=== PATIENT | male | born 1980 | race Caucasian/White ===

== ENCOUNTER 2020-08-23 09:32 | Emergency (ER) | payer MEDICAID ==
[~2020-08-23] VITALS: Ht 180 cm; Wt 82.0 kg
[~2020-08-23 09:32] MED LIST: HYDROXYPAM; LITH300T15 PO; OLAN5TAB67 PO
[2020-08-23 09:35] VITALS: BP 118/83
--- NOTE | 2020-08-23 09:59 | ED Lower Extremity ---
General Chief Complaint: Lower Extremity Stated Complaint: L KNEE PAIN Nursing Triage Note: PT AMB TO FT1 PT CO OF L KNEE PAIN, STARTED YESTERDAY AFTER TWISTING KNEE Nursing Sepsis Screen: No Definite Risk Source: patient, family Exam Limitations: no limitations History of Present Illness Date Seen by Provider: Aug 23, 2020 Time Seen by Provider: 09:45 Initial Comments Patient is a 40-year-old male who presents to the emergency department complaining of left knee pain. Patient had spontaneous onset of left knee pain last evening. He states that he thinks he might have twisted his knee at some point and going about his daily activities yesterday. Patient states that the knee swelled last night. He states that he applied ice and heat and elevated it with no relief of symptoms. He did not take any ibuprofen or Tylenol. Patient denies any foot or ankle pain. He states he has a little bit of left hip pain secondary to limping on the left leg. He denies any recent illnesses such as fevers chills cough or congestion. No Covid complaints. All other review of systems reviewed and negative except as stated above. Onset: yesterday Severity: severe (Patient rates pain at "a 9-/2") Pain/Injury Location: left knee Method of Injury: unknown Allergies and Home Medications Allergies Coded Allergies: No Known Drug Allergies (Unverified , 10/16/12) Home Medications No Active Prescriptions or Reported Meds Patient Home Medication List Home Medication List Reviewed: Yes Review of Systems Constitutional: see HPI EENTM: no symptoms reported Respiratory: no symptoms reported Cardiovascular: no symptoms reported Genitourinary: no symptoms reported Musculoskeletal: joint pain (Left knee), joint swelling (Left knee) All Other Systems Reviewed Negative Unless Noted: Yes Past Pipyxhm-Irbvup-Cispcz Hx Patient Social History Alcohol Use: Occasionally Uses Smoking Status: Current Everyday Smoker Type Used: Cigarettes Recent Infectious Disease Expo: No Recent Hopitalizations: No Seasonal Allergies Seasonal Allergies: Yes Past Medical History Surgeries: Yes (FX JAW) Respiratory: No Cardiac: No Neurological: No Gastrointestinal: No Musculoskeletal: No Endocrine: No Cancer: No Psychosocial: No Family Medical History No Pertinent Family Hx Physical Exam Vital Signs Vital Signs - First Documented 08/23/20 09:35 Temp 35.8 Pulse 90 Resp 20 B/P (MAP) 118/83 (95) Pulse Ox 97 Capillary Refill : Less Than 3 Seconds Height, Weight, BMI Height: 5'10" Weight: 160lbs. oz. [id number]; 25.00 BMI Method:Stated General Appearance: WD/WN, no apparent distress HEENT: PERRL/EOMI Cardiovascular: regular rate, rhythm Respiratory: no respiratory distress, no accessory muscle use Hips: bilateral hip non-tender, bilateral hip normal inspection, bilateral hip normal range of motion, bilateral hip no evidence of injury Legs: bilateral leg non-tender, bilateral leg normal inspection, bilateral leg normal range of motion, bilateral leg no evidence of injury Knees: right knee non-tender, right knee normal inspection, right knee normal range of motion, right knee no evidence of injury; left knee bone tenderness (Medial joint line tenderness), left knee pain (Patient has medial joint line tenderness and pain with valgus stress on the knee in the medial aspect. No crepitance no significant effusion; the knee joint is stable with a negative anterior and posterior drawer. Marilee's test for both medial and lateral pain seems to be positive, the patient is very apprehensive with this test), left knee swelling (Minimal) Ankles: bilateral ankle non-tender, bilateral ankle normal inspection, bilateral ankle normal range of motion, bilateral ankle no evidence of injury Feet: bilateral foot non-tender, bilateral foot normal inspection, bilateral foot normal range of motion, bilateral foot no evidence of injury Neurologic/Tendon: normal sensation, normal motor functions, normal tendon functions Neurologic/Psychiatric: alert, normal mood/affect, oriented x 3 Progress/Results/Core Measures Results/Orders Vital Signs/I&O 08/23/20 09:35 Temp 35.8 Pulse 90 Resp 20 B/P (MAP) 118/83 (95) Pulse Ox 97 Blood Pressure Mean: 95 Departure Impression Primary Impression: Internal derangement of left knee Disposition: 01 HOME, SELF-CARE Condition: Stable Departure-Patient Inst. Decision time for Depature: 10:00 Referrals: VICENTE RUSSO MD (PCP/Family) Primary Care Physician Patient Instructions: Ligament Injuries in the Knee (DC) Add. Discharge Instructions: wear the knee brace as needed for comfort. Please call and follow up with Orthopedics - I have given you contact info for Dr El. Take the pain medication I have prescribed twice daily with food. I have given you a dose here in the emergency department. Return to the Emergency Department for any worsening pain, swelling, weakness or other emergent concerns. All discharge instructions reviewed with patient and/or family. Voiced understanding. Scripts Naproxen (Naprosyn) 500 Mg Tablet 500 MG PO BID, #30 TAB 0 Refills Prov: AYESHA BARILLAS MD 08/23/20 Work/School Note: Work Release Form Date Seen in the Emergency Department: Aug 23, 2020 Return to Work: Aug 24, 2020 AYESHA BARILLAS MD Aug 23, 2020 09:59
[2020-08-23] MEDS ORDERED: NAPR-1071 PO (10:05)
[2020-08-23] MEDS ORDERED: NAPROXEN 250 MG (NAPROSYN) TABLET PO ONE (10:15)
== END 2020-08-23 10:18 | disposition home or self-care (01) ==
LOC: EDUNIT# 09:32 → ER 09:34
DX: M23.92 Unspecified internal derangement of left knee (principal); F17.210 Nicotine dependence, cigarettes, uncomplicated; X50.0XXA Overexertion from strenuous movement or load, initial encounter
CPT/HCPCS: 99283; L1830

== ENCOUNTER 2022-02-18 08:23 | Emergency (ER) | payer MEDICAID ==
[~2022-02-18] VITALS: Ht 175.2 cm; Wt 77.1 kg
[~2022-02-18 08:23] MED LIST changes: +NAPR-1071 PO
[2022-02-18] MEDS ORDERED: morphine INJ 10 MG/ML 1ML (SYR OR VIAL) IVP STA (08:59)
[2022-02-18] MEDS ORDERED: ONDANSETRON 4 MG/2 ML (SDV) Z0FRAN IVP ONE (09:00)
[2022-02-18] MEDS ORDERED: PANTOPRAZOLE 40 MG (PROTONIX) VIAL IV ONE (09:00)
[2022-02-18] MEDS ORDERED: LACTATED RINGERS 1,000 ML IV ONE (09:00)
[2022-02-18 09:06] LABS: BASOPHILS % (AUTO) 0 % (0-10); EOSINOPHILS # (AUTO) 0.1 10^3/uL (0.0-0.3); EOSINOPHILS % (AUTO) 1 % (0-10); HEMATOCRIT 47 % (40-54); HEMOGLOBIN 15.8 g/dL (13.3-17.7); LYMPHOCYTES # (AUTO) 1.3 10^3/uL (1.0-4.0); LYMPHOCYTES % (AUTO) 16 % (12-44); MEAN CORPUSCULAR HEMOGLOBIN 30 pg (25-34); MEAN CORPUSCULAR HGB CONC 34 g/dL (32-36); MEAN CORPUSCULAR VOLUME 89 fL (80-99); MEAN PLATELET VOLUME 9.8 fL (9.0-12.2); MONOCYTES # (AUTO) 0.5 10^3/uL (0.0-1.0); MONOCYTES % (AUTO) 6 % (0-12); NEUTROPHILS # (AUTO) 6.7 10^3/uL (1.8-7.8); NEUTROPHILS % (AUTO) 78 % (42-75); PLATELET COUNT 232 10^3/uL (130-400); WHITE BLOOD COUNT 8.6 10^3/uL (4.3-11.0)
[2022-02-18 09:12] LABS: ALBUMIN 4.3 GM/DL (3.2-4.5); POTASSIUM 4.6 MMOL/L (3.6-5.0)
[2022-02-18 09:13] LABS: CALCIUM 9.1 MG/DL (8.5-10.1)
--- NOTE | 2022-02-18 09:14 | ED Abdominal Pain ---
General Chief Complaint: Abdominal/GI Problems Stated Complaint: STOMACH PAIN ON LEFT SIDE Nursing Triage Note: PT TO RM 3 WITH CC OF L SIDE ABD PAIN, NAUSEA AND VOMITING SINCE . PT DENIES FEVER, COUGH. PT STATES ABD PAIN "COMES AND GOES. RHONDA BEEN DEALING WITH THIS FOR 5 YEARS NOW." PT REPORTS LACK OF APPITIATE. PT HX OF GERD, IBSD, UC, AND DIVERTICULITIS. Source of Information: Patient Exam Limitations: No Limitations History of Present Illness Date Seen by Provider: Feb 18, 2022 Time Seen by Provider: 08:44 Initial Comments Patient with a four 5-day flare of ulcerative colitis, left-sided abdominal pain, loose stools that are slowing down, nonbloody diarrhea. He had a normal f ormed bowel movement this morning. He has not been using anything for the pain. He has been using ondansetron for the nausea with good control but he is almost out of medication. He still having some vomiting. He is not having fevers or chills. No history of abdominal surgeries. Has had multiple scopes and a history of GERD. He smokes, drinks a sixpack of beer a week and denies a history of pancreatitis. Rates his pain as a 9 out of 10. He has a history of diverticulosis with bouts of diverticulitis. He is not on mesalamine/Pentasa. Allergies and Home Medications Allergies Coded Allergies: No Known Drug Allergies (Unverified , 10/16/12) Patient Home Medication List Home Medication List Reviewed: Yes Mesalamine (Mesalamine) 1,000 Mg Supp.rect, 1,000 MG RC DAILY Prescribed by: PHOEBE LIGHT on 02/18/22 1101 Naproxen (Naprosyn) 500 Mg Tablet, 500 MG PO BID Prescribed by: AYESHA BARILLAS on 08/23/20 1005 Ondansetron (Ondansetron Odt) 4 Mg Tab.rapdis, 4-8 MG PO Q6H PRN for NAUSEA/VOMITING Prescribed by: PHOEBE LIGHT on 02/18/22 1101 Review of Systems Review of Systems Constitutional: No chills, No fever, No malaise EENTM: No Blurred Vision, No Double Vision Respiratory: Denies Cough, Denies Shortness of Air Cardiovascular: Denies Chest Pain, Denies Edema, Denies Irregular Heart Rate Gastrointestinal: See HPI; Denies Abdomen Distended; Abdominal Pain; Denies Constipated; Diarrhea, Nausea Genitourinary: Denies Burning, Denies Discharge Musculoskeletal: No back pain, No joint pain Skin: No pruritus, No rash Psychiatric/Neurological: Denies Headache, Denies Numbness All Other Systems Reviewed Negative Unless Noted: Yes Past Ffdpcbg-Zajest-Pwvejj Hx Patient Social History Tobacco Use?: Yes Tobacco type used: Cigarettes Smoking Status: Current Everyday Smoker Substance use?: Yes Substance type: Marijuana Alcohol Use?: Yes Alcohol Frequency: Several times a month Pt feels they are or have been: No Seasonal Allergies Seasonal Allergies: Yes Past Medical History Surgery/Hospitalization HX: JAW SURGERY, GERD, IBS, UC, DIVERTICULITIS Surgeries: Yes (FX JAW) Respiratory: No Cardiac: No Neurological: No Gastrointestinal: No Musculoskeletal: No Endocrine: No Cancer: No Psychosocial: No Family Medical History No Pertinent Family Hx Physical Exam Vital Signs Vital Signs - First Documented 02/18/22 08:30 Temp 36.3 Pulse 69 Resp 20 B/P (MAP) 117/86 (96) Pulse Ox 97 O2 Delivery Room Air Capillary Refill : Less Than 3 Seconds Height/Weight/BMI Height: 5'10" Weight: 160lbs. oz. 72.329582yr; 25.00 BMI Method:Stated General Appearance: WD/WN, mild distress HEENT: PERRL/EOMI; No pharynx normal (Dry oral mucosa) Neck: full range of motion, normal inspection Respiratory: lungs clear, normal breath sounds, no respiratory distress, no accessory muscle use Cardiovascular: normal peripheral pulses, regular rate, rhythm Peripheral Pulses: 2+ Radial Pulses (R), 2+ Radial Pulses (L) Gastrointestinal: normal bowel sounds, soft, tenderness (Left upper and lower quadrant abdomen.) Extremities: normal capillary refill Neurologic/Psychiatric: alert, normal mood/affect, oriented x 3 Skin: normal color, warm/dry Progress/Results/Core Measures Results/Orders Lab Results Laboratory Tests Test 02/18/22 08:50 Range/Units White Blood Count 8.6 4.3-11.0 10^3/uL Red Blood Count 5.25 4.30-5.52 10^6/uL Hemoglobin 15.8 13.3-17.7 g/dL Hematocrit 47 40-54 % Mean Corpuscular Volume 89 80-99 fL Mean Corpuscular Hemoglobin 30 25-34 pg Mean Corpuscular Hemoglobin Concent 34 32-36 g/dL Red Cell Distribution Width 13.5 10.0-14.5 % Platelet Count 232 130-400 10^3/uL Mean Platelet Volume 9.8 9.0-12.2 fL Immature Granulocyte % (Auto) 0 % Neutrophils (%) (Auto) 78 H 42-75 % Lymphocytes (%) (Auto) 16 12-44 % Monocytes (%) (Auto) 6 0-12 % Eosinophils (%) (Auto) 1 0-10 % Basophils (%) (Auto) 0 0-10 % Neutrophils # (Auto) 6.7 1.8-7.8 10^3/uL Lymphocytes # (Auto) 1.3 1.0-4.0 10^3/uL Monocytes # (Auto) 0.5 0.0-1.0 10^3/uL Eosinophils # (Auto) 0.1 0.0-0.3 10^3/uL Basophils # (Auto) 0.0 0.0-0.1 10^3/uL Immature Granulocyte # (Auto) 0.0 0.0-0.1 10^3/uL Sodium Level 142 135-145 MMOL/L Potassium Level 4.6 3.6-5.0 MMOL/L Chloride Level 106 98-107 MMOL/L Carbon Dioxide Level 26 21-32 MMOL/L Anion Gap 10 5-14 MMOL/L Blood Urea Nitrogen 22 H 7-18 MG/DL Creatinine 1.14 0.60-1.30 MG/DL Estimat Glomerular Filtration Rate 82 BUN/Creatinine Ratio 19 Glucose Level 103 70-105 MG/DL Calcium Level 9.1 8.5-10.1 MG/DL Corrected Calcium 8.9 8.5-10.1 MG/DL Total Bilirubin 0.5 0.1-1.0 MG/DL Aspartate Amino Transf (AST/SGOT) 15 5-34 U/L Alanine Aminotransferase (ALT/SGPT) 20 0-55 U/L Alkaline Phosphatase 57 40-136 U/L C-Reactive Protein High Sensitivity 0.56 H 0.00-0.50 MG/DL Total Protein 7.0 6.4-8.2 GM/DL Albumin 4.3 3.2-4.5 GM/DL Lipase 19 8-78 U/L My Orders Orders - KULDEEP,PHOEBE J Ed Iv/Invasive Line Start (02/18/22 08:59) Lactated Ringers (Lr 1000 Ml Iv Solution (02/18/22 09:00) Cbc With Automated Diff (02/18/22 08:59) Comprehensive Metabolic Panel (02/18/22 08:59) Hs C Reactive Protein (02/18/22 08:59) Pantoprazole Injection (Protonix Injecti (02/18/22 09:00) Ondansetron Injection (Zofran Injectio (02/18/22 09:00) Morphine Injection (Morphine Injection (02/18/22 08:59) Lipase (02/18/22 08:59) Medications Given in ED Current Medications Medications Dose Ordered Sig/Nimo Route Start Time Stop Time Status Last Admin Dose Admin Lactated Ringer's 1,000 ml @ 0 mls/hr Q0M ONCE IV 02/18/22 09:00 02/18/22 09:02 DC 02/18/22 09:11 1,000 MLS/HR Ondansetron HCl 8 mg ONCE ONCE IVP 02/18/22 09:00 02/18/22 09:02 DC 02/18/22 09:09 8 MG Pantoprazole 40 mg ONCE ONCE IV 02/18/22 09:00 02/18/22 09:02 DC 02/18/22 09:09 40 MG Vital Signs/I&O 02/18/22 02/18/22 08:30 11:10 Temp 36.3 36.3 Pulse 69 52 Resp 20 20 B/P (MAP) 117/86 (96) 112/83 Pulse Ox 97 99 O2 Delivery Room Air Room Air Blood Pressure Mean: 96 Progress Progress Note #1: Time: 09:13 Progress Note We will start with 2 mg morphine, some fluids, ondansetron and check some labs including a lipase. We will also set him up with a refill for his ondansetron and discuss mesalamine suppositories. Progress Note #2: Time: 10:54 Progress Note The patient's pain is improving. He says he has a brother who had a intestinal cancer found near his biliary duct. We have encouraged him to continue doing screening scopes and recommend he talk to Dr. Russo for referral or he can follow- up with Dr. Novoa, general surgery for screening scopes. We will put him out with a prescription for mesalamine suppositories and ondansetron. Departure Impression Primary Impression: Ulcerative colitis, acute Qualified Codes: K51.90 - Ulcerative colitis, unspecified, without complications Disposition: 01 HOME, SELF-CARE Condition: Stable Departure-Patient Inst. Decision time for Depature: 10:56 Referrals: ARASH NOVOA JOHN M MD (PCP/Family) Primary Care Physician Patient Instructions: Ulcerative Colitis (DC), Diet for Ulcerative Colitis Add. Discharge Instructions: Mesalamine suppository once a day. Follow-up with your primary care doctor within the next 2 weeks to reevaluate symptom control. Ondansetron 1 tablet every 6 hours as needed for nausea or vomiting. If you are still having symptoms 30 to 60 minutes later then take a second tablet of ondansetron. Tylenol 1000 mg every 8 hours as needed for pain. Continue to take an acids as necessary. Do not take NSAIDs such as ibuprofen, Motrin, Aleve, naproxen etc. Return to the ER for severe, intractable symptoms especially accompanied with fever or other worrisome concerns. Call Dr. Novoa or a security alarm technician. Dr. Russo can help guide you. All discharge instructions reviewed with patient and/or family. Voiced understanding. Scripts Mesalamine (Mesalamine) 1,000 Mg Supp.rect 1000 MG RC DAILY, #30 SUPP.RECT 0 Refills Prov: PHOEBE LIGHT 02/18/22 Ondansetron (Ondansetron Odt) 4 Mg Tab.rapdis 4-8 MG PO Q6H PRN for NAUSEA/VOMITING, #20 TAB 0 Refills Prov: PHOEBE LIGHT 02/18/22 Work/School Note: Work Release Form Date Seen in the Emergency Department: Feb 18, 2022 Return to Work: Feb 21, 2022 Restrictions: No Restrictions Copy Copies To 1: ARASH NOVOA DO; VICENTE RUSSO MD, TITUS J Feb 18, 2022 09:14
[2022-02-18 09:17] LABS: BILIRUBIN,TOTAL 0.5 MG/DL (0.1-1.0)
[2022-02-18 09:19] LABS: CREATININE SERUM 1.14 MG/DL (0.60-1.30)
[2022-02-18] MEDS ORDERED: ONDA4TAB11 PO (11:01)
[2022-02-18] MEDS ORDERED: MESA10005 RC (11:01)
[2022-02-18 11:10] VITALS: BP 112/83
== END 2022-02-18 11:10 | disposition home or self-care (01) ==
LOC: EDUNIT# 08:23 → ER 08:26
DX: K51.90 Ulcerative colitis, unspecified, without complications (principal); F17.210 Nicotine dependence, cigarettes, uncomplicated; Z28.310 Unvaccinated for COVID-19
CPT/HCPCS: 36415; 80053; 83690; 85025; 86141; 96361; 96374; 96375

== ENCOUNTER 2022-02-21 07:57 | Emergency (ER) | payer MEDICAID ==
[~2022-02-21] VITALS: Ht 175.3 cm; Wt 77.1 kg
[~2022-02-21 07:57] MED LIST changes: +MESA10005 RC; +ONDA4TAB11 PO
[2022-02-21 08:35] LABS: BASOPHILS % (AUTO) 0 % (0-10); EOSINOPHILS # (AUTO) 0.1 10^3/uL (0.0-0.3); EOSINOPHILS % (AUTO) 1 % (0-10); HEMATOCRIT 50 % (40-54); HEMOGLOBIN 16.8 g/dL (13.3-17.7); LYMPHOCYTES # (AUTO) 1.5 10^3/uL (1.0-4.0); LYMPHOCYTES % (AUTO) 30 % (12-44); MEAN CORPUSCULAR HEMOGLOBIN 30 pg (25-34); MEAN CORPUSCULAR HGB CONC 34 g/dL (32-36); MEAN CORPUSCULAR VOLUME 89 fL (80-99); MEAN PLATELET VOLUME 9.5 fL (9.0-12.2); MONOCYTES # (AUTO) 0.4 10^3/uL (0.0-1.0); MONOCYTES % (AUTO) 8 % (0-12); NEUTROPHILS # (AUTO) 2.9 10^3/uL (1.8-7.8); NEUTROPHILS % (AUTO) 60 % (42-75); PLATELET COUNT 251 10^3/uL (130-400); WHITE BLOOD COUNT 4.9 10^3/uL (4.3-11.0)
[2022-02-21 08:48] LABS: ALBUMIN 4.4 GM/DL (3.2-4.5); POTASSIUM 4.4 MMOL/L (3.6-5.0)
[2022-02-21 08:49] LABS: CALCIUM 9.4 MG/DL (8.5-10.1)
[2022-02-21 08:51] LABS: TOTAL PROTEIN 7.3 GM/DL (6.4-8.2)
[2022-02-21 08:53] LABS: BILIRUBIN,TOTAL 0.4 MG/DL (0.1-1.0); ERYTHROCYTE SEDIMENTATION RATE 4 MM/HR (0-15)
[2022-02-21 08:54] LABS: CREATININE SERUM 0.87 MG/DL (0.60-1.30)
[2022-02-21] MEDS ORDERED: LACTATED RINGERS 1,000 ML IV ONE (10:15)
[2022-02-21] MEDS ORDERED: HOLD METFORMIN - RECEIVED CONTRAST 20 ML VIAL IV SCH (10:30)
[2022-02-21] MEDS ORDERED: NS 100 ML (IVPB) BAG IV ONE (10:30)
[2022-02-21] MEDS ORDERED: IOHEXOL 350 MG/ML 100 ML (OMNIPAQUE 350) VIAL IV ONE (10:30)
[2022-02-21] MEDS ORDERED: ONDANSETRON 4 MG/2 ML (SDV) Z0FRAN IVP ONE (10:30)
[2022-02-21] MEDS ORDERED: CATHETER FLUSH 10 ML SYR IV PRN (10:30)
--- NOTE | 2022-02-21 10:46 | Diagnostic Imaging Report ---
PROCEDURE: CT abdomen and pelvis with contrast. TECHNIQUE: Multiple contiguous axial images were obtained through the abdomen and pelvis after administration of intravenous contrast. Auto Exposure Controls were utilized during the CT exam to meet ALARA standards for radiation dose reduction. All CT scans use one or more of the following dose optimizing techniques: automated exposure control, MA and/or KvP adjustment based on patient size and exam type or iterative reconstruction. INDICATION: Intermittent abdominal pain. FINDINGS: The lung bases are clear. Good enhancement of the aorta and abdominal vessels and organs. Aorta appears normal. The liver appears normal. Gallbladder and bile duct are normal. Pancreas and spleen are normal. Adrenal glands are not enlarged. Kidneys show normal enhancement without obstruction, calculi or mass. No adenopathy is noted. The stomach and small bowel are not distended. Colon shows normal stool and gas pattern. The appendix is not dilated. No findings are seen to indicate diverticulitis or colitis. No free air or free fluid. Bladder is not distended. No bony abnormalities. IMPRESSION: Normal CT abdomen and pelvis. Dictated by: Dictated on workstation # [id number]
--- NOTE | 2022-02-21 11:25 | ED Abdominal Pain ---
General Chief Complaint: Abdominal/GI Problems Stated Complaint: ABD PAIN Nursing Triage Note: PT AMBULATE TO ROOM 08 WITHOUT DIFFICULTY WITH C/O LEFT LOWER ABD PAIN. PT REPORTS PAIN IS CHRONIC AND HAS BEEN HAPPENING FREQUENTLY "FOR YEARS". PT STATES THAT THE ABD PAIN RETURNED X1 WEEK AGO. PT REPORTS BEING SEEN IN THIS ED ON THURSDAY FOR SAME C/O. PT REPORTS HE HAS BEEN TAKING MEDS PRESCRIBED ON THURSDAY WITHOUT RELIEF. Source of Information: Patient Exam Limitations: No Limitations History of Present Illness Date Seen by Provider: Feb 21, 2022 Time Seen by Provider: 07:59 Initial Comments This 41-year-old gentleman presents to the emergency room with exacerbation of chronic left abdominal pain, nausea and vomiting. He reports history of extensive work-up in the past including upper endoscopy, colonoscopy, gall bladder ultrasound, hepatobiliary scan, and consultation with gastroenterology. He reports a diagnosis of ulcerative colitis and gastric ulcers. He has tried long-term PPI therapy in the past without improvement. He does admit to smoking marijuana daily and states a month of abstinence did not improve his symptoms. He also admits to drinking approximately a sixpack of beers per week. He is additionally a smoker. He has had intermittent episodes of these symptoms for at least 5 years. This morning he had exacerbation of pain and was vomiting. He was also seen 3 days ago in this ER and was started on mesalamine suppositories for treatment of ulcerative colitis, presuming that his present symptoms are related to ulcerative colitis. He also reports prior diagnosis of irritable bowel syndrome with diarrhea and diverticulitis. His primary care provider is Dr. Russo in [place], [place]. He has recently alternated between constipation and diarrhea. He feels dry as his urine has been dark recently. He reports his endoscopies were 3 years ago, hepatobiliary scan 5 years ago, and CT 5 years ago. Allergies and Home Medications Allergies Coded Allergies: No Known Drug Allergies (Unverified , 10/16/12) Patient Home Medication List Home Medication List Reviewed: Yes Mesalamine (Mesalamine) 1,000 Mg Supp.rect, 1,000 MG RC DAILY Prescribed by: PHOEBE LIGHT on 02/18/22 1101 Naproxen (Naprosyn) 500 Mg Tablet, 500 MG PO BID Prescribed by: AYESHA BARILLAS on 08/23/20 1005 Ondansetron (Ondansetron Odt) 4 Mg Tab.rapdis, 4-8 MG PO Q6H PRN for NAUSEA/VOMITING Prescribed by: PHOEBE LIGHT on 02/18/22 1101 Pantoprazole Sodium (Protonix) 40 Mg Tablet.dr, 40 MG PO DAILY Prescribed by: GENIA BAEZA on 02/21/22 1127 Tramadol HCl (Ultram) 50 Mg Tablet, 50 MG PO Q6H PRN for PAIN-BREAKTHROUGH Prescribed by: GENIA BAEZA on 02/21/22 1128 Review of Systems Review of Systems Constitutional: no symptoms reported EENTM: No Symptoms Reported Respiratory: No Symptoms Reported Cardiovascular: No Symptoms Reported Gastrointestinal: See HPI Genitourinary: See HPI Musculoskeletal: no symptoms reported Skin: no symptoms reported Psychiatric/Neurological: No Symptoms Reported Endocrine: No Symptoms Reported Hematologic/Lymphatic: No Symptoms Reported Past Xqqafzu-Uojner-Mkkzbb Hx Patient Social History Tobacco Use?: Yes Tobacco type used: Cigarettes Smoking Status: Heavy Tobacco Smoker Smokeless Tobacco Frequency: Never a User Use of E-Cig and/or Vaping dev: No Use of E-Cig and/or Vaping Julian: Never a User Substance use?: Yes Substance type: Marijuana Substance frequency: Daily Alcohol Use?: Yes Alcohol Frequency: Once in a while Pt feels they are or have been: No Seasonal Allergies Seasonal Allergies: Yes Past Medical History Surgery/Hospitalization HX: JAW SURGERY, GERD, IBS, UC, DIVERTICULITIS Surgeries: Yes (FX JAW) Abdominal (Upper and lower endoscopy) Respiratory: No Cardiac: No Neurological: No Gastrointestinal: Yes (Chronic abdominal pain) Colitis (Ulcerative colitis), Diverticulosis, Ulcer, Irritable Bowel Musculoskeletal: No Endocrine: No HEENT: No Cancer: No Psychosocial: Yes Bipolar Family Medical History No Pertinent Family Hx Physical Exam Vital Signs Vital Signs - First Documented 02/21/22 08:09 Temp 36.8 Pulse 70 Resp 15 B/P (MAP) 113/83 (93) O2 Delivery Room Air Capillary Refill : Less Than 3 Seconds Height/Weight/BMI Height: 5'10" Weight: 160lbs. oz. 72.555175nn; 25.00 BMI Method:Stated General Appearance: WD/WN, no apparent distress, thin HEENT: PERRL/EOMI, normal ENT inspection, other (Mucous membranes moist) Neck: normal inspection Respiratory: lungs clear, normal breath sounds, no respiratory distress Cardiovascular: regular rate, rhythm, no edema, no murmur Gastrointestinal: normal bowel sounds, soft; No distended; tenderness (Left abdomen) Extremities: non-tender, normal inspection, no pedal edema Neurologic/Psychiatric: portfolio mgr II-XII nml as tested, no motor/sensory deficits, alert, normal mood/affect, oriented x 3 Skin: normal color, warm/dry Progress/Results/Core Measures Results/Orders Lab Results Laboratory Tests Test 02/21/22 08:27 Range/Units White Blood Count 4.9 4.3-11.0 10^3/uL Red Blood Count 5.61 H 4.30-5.52 10^6/uL Hemoglobin 16.8 13.3-17.7 g/dL Hematocrit 50 40-54 % Mean Corpuscular Volume 89 80-99 fL Mean Corpuscular Hemoglobin 30 25-34 pg Mean Corpuscular Hemoglobin Concent 34 32-36 g/dL Red Cell Distribution Width 13.3 10.0-14.5 % Platelet Count 251 130-400 10^3/uL Mean Platelet Volume 9.5 9.0-12.2 fL Immature Granulocyte % (Auto) 0 % Neutrophils (%) (Auto) 60 42-75 % Lymphocytes (%) (Auto) 30 12-44 % Monocytes (%) (Auto) 8 0-12 % Eosinophils (%) (Auto) 1 0-10 % Basophils (%) (Auto) 0 0-10 % Neutrophils # (Auto) 2.9 1.8-7.8 10^3/uL Lymphocytes # (Auto) 1.5 1.0-4.0 10^3/uL Monocytes # (Auto) 0.4 0.0-1.0 10^3/uL Eosinophils # (Auto) 0.1 0.0-0.3 10^3/uL Basophils # (Auto) 0.0 0.0-0.1 10^3/uL Immature Granulocyte # (Auto) 0.0 0.0-0.1 10^3/uL Erythrocyte Sedimentation Rate 4 0-15 MM/HR Sodium Level 139 135-145 MMOL/L Potassium Level 4.4 3.6-5.0 MMOL/L Chloride Level 105 98-107 MMOL/L Carbon Dioxide Level 24 21-32 MMOL/L Anion Gap 10 5-14 MMOL/L Blood Urea Nitrogen 17 7-18 MG/DL Creatinine 0.87 0.60-1.30 MG/DL Estimat Glomerular Filtration Rate 110 BUN/Creatinine Ratio 20 Glucose Level 96 70-105 MG/DL Calcium Level 9.4 8.5-10.1 MG/DL Corrected Calcium 9.1 8.5-10.1 MG/DL Total Bilirubin 0.4 0.1-1.0 MG/DL Aspartate Amino Transf (AST/SGOT) 19 5-34 U/L Alanine Aminotransferase (ALT/SGPT) 21 0-55 U/L Alkaline Phosphatase 68 40-136 U/L C-Reactive Protein High Sensitivity 0.62 H 0.00-0.50 MG/DL Total Protein 7.3 6.4-8.2 GM/DL Albumin 4.4 3.2-4.5 GM/DL Lipase 21 8-78 U/L My Orders Orders - GENIA MANCIA MD Cbc With Automated Diff (02/21/22 08:30) Comprehensive Metabolic Panel (02/21/22 08:30) Hs C Reactive Protein (02/21/22 08:30) Lipase (02/21/22 08:30) Erythrocyte Sedimentation Rate (02/21/22 08:30) Ed Iv/Invasive Line Start (02/21/22 08:30) Lactated Ringers (Lr 1000 Ml Iv Solution (02/21/22 10:15) Ct Abdomen/Pelvis W (02/21/22 10:13) Iohexol Injection (Omnipaque 350 Mg/Ml 1 (02/21/22 10:30) Received Contrast (Hold Metformin- Contr (02/21/22 10:30) Sodium Chloride Flush (Catheter Flush Sy (02/21/22 10:30) Ns (Ivpb) (Sodium Chloride 0.9% Ivpb Bag (02/21/22 10:30) Ondansetron Injection (Zofran Injectio (02/21/22 10:30) Tramadol Tablet (Ultram Tablet) (02/21/22 11:30) Helicobacter Pylori Francy Igg (02/21/22 11:29) Medications Given in ED Vital Signs/I&O 02/21/22 08:09 Temp 36.8 Pulse 70 Resp 15 B/P (MAP) 113/83 (93) O2 Delivery Room Air Blood Pressure Mean: 93 Progress Progress Note : Progress Note Work-up was grossly unremarkable. He was treated with Zofran and IV fluids. A dose of tramadol was given before discharge as a trial for pain management. Previously he had been taking Tylenol only which was not very effective. I offered CT scan because he has not had one in the past 5 years and I do not have a CT scan on file in his medical record. Patient wished to proceed with CT scan. CT did not show any clear etiology for his pain or vomiting. We discussed the necessity to abstain from both alcohol and marijuana for several months to determine if these exposures are a contributing factor. I also encouraged him to continue daily PPI therapy and follow dietary recommendations. See discharge instructions for further discussion. Diagnostic Imaging Diagonstic Imaging: CT Plain Films/CT/US/NM/MRI: abdomen, pelvis Comments CT abdomen and pelvis viewed by me and report reviewed. See report below: NAME: ASHLEY MOTLEY [facility] REC#: [id number] PT STATUS: REG ER : 1980 PHYSICIAN: GENIA MANCIA MD ADMIT DATE: 02/21/22/ER Signed Date of Exam:02/21/22 CT ABDOMEN/PELVIS W PROCEDURE: CT abdomen and pelvis with contrast. TECHNIQUE: Multiple contiguous axial images were obtained through the abdomen and pelvis after administration of intravenous contrast. Auto Exposure Controls were utilized during the CT exam to meet ALARA standards for radiation dose reduction. All CT scans use one or more of the following dose optimizing techniques: automated exposure control, MA and/or KvP adjustment based on patient size and exam type or iterative reconstruction. INDICATION: Intermittent abdominal pain. FINDINGS: The lung bases are clear. Good enhancement of the aorta and abdominal vessels and organs. Aorta appears normal. The liver appears normal. Gallbladder and bile duct are normal. Pancreas and spleen are normal. Adrenal glands are not enlarged. Kidneys show normal enhancement without obstruction, calculi or mass. No adenopathy is noted. The stomach and small bowel are not distended. Colon shows normal stool and gas pattern. The appendix is not dilated. No findings are seen to indicate diverticulitis or colitis. No free air or free fluid. Bladder is not distended. No bony abnormalities. IMPRESSION: Normal CT abdomen and pelvis. Dictated by: Dictated on workstation # [id number] Dict: 02/21/22 1036 Trans: 02/21/22 1058 [facility] [id number] Interpreted by: ARASH ROJAS MD Electronically signed by: ARASH ROJAS MD 02/21/22 1058 Departure Impression Primary Impression: Left sided abdominal pain of unknown cause Additional Impression: Nausea and vomiting Qualified Codes: R11.2 - Nausea with vomiting, unspecified Disposition: 01 HOME, SELF-CARE Condition: Improved Departure-Patient Inst. Decision time for Depature: 11:20 Referrals: VICENTE RUSSO MD (PCP/Family) Primary Care Physician Patient Instructions: Abdominal Pain, Adult ED, Ulcerative Colitis in Adults Add. Discharge Instructions: You may continue taking Tylenol (acetaminophen) up to 1000 mg every 6 hours as needed for pain. Add Ultram (tramadol) as prescribed for pain not controlled by Tylenol. Continue with antiacid therapy daily such as Protonix or omeprazole until o therwise instructed by your doctor. Follow-up with your primary care provider soon as possible and seek referral back to a reconciling clerk. Avoid the following: Alcohol, tobacco, smoking including marijuana/THC products, eating large meals, eating close to bedtime, caffeine, carbonation, citrus fruits and juices, tomato products, mints, NSAID medications such as ibuprofen or naproxen, spicy foods, fatty/greasy foods, or anything else you know irritates your stomach. Continue with the mesalamine suppositories as previously prescribed. This is a maintenance medication for ulcerative colitis. If ulcerative colitis is the cause of your pain, this medication may help considerably over time. You may continue using Zofran as prescribed for nausea and vomiting. Drink plenty of noncarbonated clear liquids. An H. pylori test was ordered in the emergency room. You may follow-up on the results of this test with your primary care provider. Results usually take several days from the hospital lab. Return to the emergency room if you have worsening symptoms despite following these instructions. All discharge instructions reviewed with patient and/or family. Voiced understanding. Scripts Pantoprazole Sodium (Protonix) 40 Mg Tablet. 40 MG PO DAILY, #30 TAB Prov: GENIA MANCIA MD 02/21/22 Tramadol HCl (Ultram) 50 Mg Tablet 50 MG PO Q6H PRN for PAIN-BREAKTHROUGH, #10 TAB Prov: GENIA MANCIA MD 02/21/22 Copy Copies To 1: VICENTE RUSSO MD, JOSHUA T MD Feb 21, 2022 11:25
[2022-02-21] MEDS ORDERED: PANT40TA2 PO (11:27)
[2022-02-21] MEDS ORDERED: TRAM-42 PO (11:27)
[2022-02-21 11:37] VITALS: BP 137/86
== END 2022-02-21 11:37 | disposition home or self-care (01) ==
LOC: EDUNIT# 07:57 → ER 07:58
DX: R10.9 Unspecified abdominal pain (principal); R11.2 Nausea with vomiting, unspecified; F17.210 Nicotine dependence, cigarettes, uncomplicated; Z28.310 Unvaccinated for COVID-19
CPT/HCPCS: 36415; 74177; 80053; 83690; 85025; 85652; 86141; 86677

== ENCOUNTER → 2022-03-26 | Outpatient (CLI) | payer MEDICAID ==
[~2022-03-26] MED LIST changes: +PANT40TA2 PO; +TRAM-42 PO
--- NOTE | 2022-03-26 08:07 | Diagnostic Imaging Report ---
PROCEDURE: CT abdomen and pelvis without contrast. TECHNIQUE: Multiple contiguous axial images were obtained through the abdomen and pelvis without the use of intravenous contrast. Auto Exposure Controls were utilized during the CT exam to meet ALARA standards for radiation dose reduction. INDICATION: Left-sided abdominal pain COMPARISON: 02/21/2022 FINDINGS: The visualized lung bases are clear. The unenhanced liver and spleen are unremarkable. The adrenal glands are unremarkable. The pancreas is unremarkable. The gallbladder is unremarkable. The kidneys and bilateral ureters are unremarkable. No aneurysmal dilatation of the abdominal aorta. The appendix is unremarkable. Urinary bladder is predominantly decompressed but otherwise unremarkable. Tiny fat-containing right inguinal hernia. No bowel obstruction or pneumatosis. No significant adenopathy, free air, or free fluid within the abdomen or pelvis. No acute osseous abnormality. IMPRESSION: Stable examination without acute abnormality. Dictated by: Dictated on workstation # [id number]
== END ==
LOC: RAD 07:45
PROVIDERS: ATTEND Pediatrics
DX: R10.12 Left upper quadrant pain (principal)
CPT/HCPCS: 74176

== ENCOUNTER 2022-10-01 20:26 | Emergency (ER) | payer MEDICAID ==
[~2022-10-01] VITALS: Ht 175.3 cm; Wt 84.0 kg
[2022-10-01 20:35] VITALS: BP 116/96
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
[2022-10-01] MEDS ORDERED: KETOROLAC 60 MG/2 ML VIAL IM ONE (21:15)
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
== END 2022-10-01 21:47 | disposition home or self-care (01) ==
LOC: EDUNIT# 20:26 → ER 20:30
DX: S61.432A Puncture wound without foreign body of left hand, initial encounter (principal); Z28.310 Unvaccinated for COVID-19; W26.0XXA Contact with knife, initial encounter
CPT/HCPCS: 73130